=== PATIENT | female | born 1990 ===

== ENCOUNTER → 2020-08-16 | Outpatient (CLI) | payer OTHER ==
[2020-08-18 08:09] LABS: HPV 16 Negative (Negative); HPV 18 Negative (Negative); HPV OTHER HR TYPES Negative (Negative)
== END | disposition home or self-care (01) ==
LOC: LAB 09:54 → LAB SHORT 09:54
PROVIDERS: Obstetrics & Gynecology
DX: Z01.419 Encounter for gynecological examination (general) (routine) without abnormal findings (principal)
CPT/HCPCS: 87624; G0123

== ENCOUNTER → 2022-06-28 | Outpatient (CLI) | payer OTHER | END | disposition home or self-care (01) | LOC: LAB SHORT 12:00 → LAB 12:00 | DX: O09.93 Supervision of high risk pregnancy, unspecified, third trimester (principal) | CPT/HCPCS: 87081; 87150 ==

== ENCOUNTER 2022-07-27 00:41 | Inpatient (IN) | payer OTHER ==
[~2022-07-27] VITALS: Ht 165.1 cm; Wt 79.5 kg
[2022-07-27 01:34] LABS: BASOPHILS ABSOLUTE AUTO 0.05 K/mm3 (0.00-0.23); BASOPHILS PERCENT AUTO 0 % (0-2); EOSINOPHILS ABSOLUTE AUTO 0.08 K/mm3 (0.00-0.68); EOSINOPHILS PERCENT AUTO 1 % (0-6); Hematocrit 36.7 % (33.0-51.0); IMMATURE GRAN PERCENT AUTO 1 % (0-1); LYMPHOCYTES PERCENT AUTO 18 % (21-46); MONOCYTES ABSOLUTE AUTO 0.93 K/mm3 (0.16-1.47); MONOCYTES PERCENT AUTO 8 % (4-13); Mean Corpuscular HGB 29.1 pg (26.0-34.0); Mean Corpuscular HGB Conc 32.7 g/dL (31.5-36.5); Mean Corpuscular Volume 89 fL (80-100); Mean Platelet Volume 10.3 fL (9.1-12.4); NEUTROPHILS ABSOLUTE AUTO 8.01 K/mm3 (1.96-9.15); NEUTROPHILS PERCENT AUTO 72 % (41-73); Platelet Count 233 K/mm3 (150-400); RDW Coefficient Variation 15.6 % (11.7-14.2); Red Blood Cell Count 4.12 M/mm3 (3.80-5.20); White Blood Cell Count 11.17 K/mm3 (4.00-11.30)
--- NOTE | 2022-07-27 10:13 | NUR ---
Pt. is awake and welcomes my visit. Spouse and Pts.parents are present, as is the baby. Re-establish rapport as this family is known to this electronic scale tester. Lending Activities Supervisor arrives for a well-baby check. Facilitate a short review of the birthing story and pray a blessing over the baby and the family. Pt. and family verbalize gratitude for the spiritual care visit.
[2022-07-27] MEDS ORDERED: IBUP800 PO (11:25)
[2022-07-27 16:44] LABS: Hematocrit 31.6 % (33.0-51.0); Hemoglobin 10.6 g/dL (11.5-16.0); Mean Corpuscular HGB 30.2 pg (26.0-34.0); Mean Corpuscular HGB Conc 33.5 g/dL (31.5-36.5); Mean Corpuscular Volume 90 fL (80-100); Mean Platelet Volume 10.3 fL (9.1-12.4); Platelet Count 217 K/mm3 (150-400); RDW Coefficient Variation 15.8 % (11.7-14.2); RDW Standard Deviation 52.2 fL (35.1-46.3); Red Blood Cell Count 3.51 M/mm3 (3.80-5.20); White Blood Cell Count 11.26 K/mm3 (4.00-11.30)
--- NOTE | 2022-07-27 17:00 | NUR ---
NO COMPLAINTS. DENIES PAIN. CARING FOR SELF AND BABY INDEPENDANTLY. NO QUESTIONS OR CONCERNS.
--- NOTE | 2022-07-27 20:26 | NUR ---
Pt was holding baby while sitting in bed. Pt was awake. All needs were met.
--- NOTE | 2022-07-28 12:47 | NUR ---
DC INSTRUCTIONS GIVEN, DISCHARGED HOME WITH . WILL FOLLOW UP SATURDAY AT 1100 HERE AT [facility] FOR PPFU AND WITH DR MCCULLOUGH WITHIN 4-6 WEEKS.
== END 2022-07-28 12:45 | disposition home or self-care (01) | DRG 806 ==
LOC: OBS 00:41 → BC 00:44 → OBS 01:09 → BC 01:10
PROVIDERS: ADMIT Obstetrics & Gynecology
PROC: 10E0XZZ Delivery of Products of Conception, External Approach (ICD-10-PCS; principal; 2022-07-27)
PROC: 10907ZC Drainage of Amniotic Fluid, Therapeutic from Products of Conception, Via Natural or Artificial Opening (ICD-10-PCS; 2022-07-27)
DX: O48.0 Post-term pregnancy (principal); D62 Acute posthemorrhagic anemia; Z37.0 Single live birth; O26.893 Other specified pregnancy related conditions, third trimester; O99.02 Anemia complicating childbirth; O99.03 Anemia complicating the puerperium; Z3A.40 40 weeks gestation of pregnancy; D50.9 Iron deficiency anemia, unspecified; Z67.41 Type O blood, Rh negative; Z98.890 Other specified postprocedural states
CPT/HCPCS: 85025; 85027; 86850; 86870; 86900; 86901; A9270; J1885; J2210; J2590; J7120

== ENCOUNTER → 2024-10-23 | Outpatient (CLI) | payer OTHER ==
[~2024-10-23] MED LIST: IBUP800 PO
[2024-10-23 12:55] LABS: Source, Urine Clean Catch
[2024-10-23 14:26] LABS: Bacteria Few /hpf; Squamous Epithelial Cells Few /hpf (Few); White Blood Cells, Urine 0-2 /hpf (0-5)
== END ==
LOC: LAB 12:47 → LAB SHORT 12:47
PROVIDERS: Advanced Practice Midwife
DX: O09.90 Supervision of high risk pregnancy, unspecified, unspecified trimester (principal)
CPT/HCPCS: 81015; 87086

== ENCOUNTER → 2025-04-28 | Outpatient (CLI) | payer OTHER | END | disposition home or self-care (01) | LOC: LAB 11:56 → LAB SHORT 11:56 | DX: O09.90 Supervision of high risk pregnancy, unspecified, unspecified trimester (principal) | CPT/HCPCS: 87081; 87150 ==

== ENCOUNTER 2025-06-03 03:25 | Inpatient (IN) | payer OTHER ==
[2025-06-03] VITALS (8 sets, daily range): BP systolic 101–116; BP diastolic 59–77
[~2025-06-03] VITALS: Ht 165.1 cm; Wt 79.1 kg
[2025-06-03] MEDS ORDERED: ePHEDrine Sulfate 50 MG/ML 1ML Injection XX PRN (05:25)
[2025-06-03] MEDS ORDERED: Carboprost Tromethamine 250 MCG/ML 1ML Amp IM PRN ×2 (05:25→09:25)
[2025-06-03] MEDS ORDERED: Methylergonovine Maleate 0.2MG / ML 1ML Amp IM PRN ×2 (05:25→09:30)
[2025-06-03] MEDS ORDERED: Oxytocin 10 Unit / ML Vial IM PRN (05:25)
[2025-06-03] MEDS ORDERED: FentaNYL 2mcg/ml-Bup 0.1% Epd 250 ML EPI PRN (05:25)
[2025-06-03] MEDS ORDERED: Ondansetron HCl 2 MG / ML 2ML Vial IV PRN (05:25)
[2025-06-03] MEDS ORDERED: OXYTOCIN/RINGER'S LACTATE 500 ML IV PRN (05:25)
[2025-06-03] MEDS ORDERED: OXYTOCIN/RINGER'S LACTATE 500 ML IV ONE (05:32)
[2025-06-03] MEDS ORDERED: Tranexamic Acid 100 ML IV SCH (05:40)
[2025-06-03 05:56] LABS: BASOPHILS ABSOLUTE AUTO 0.04 K/mm3 (0.00-0.23); BASOPHILS PERCENT AUTO 1 % (0-2); EOSINOPHILS ABSOLUTE AUTO 0.06 K/mm3 (0.00-0.68); EOSINOPHILS PERCENT AUTO 1 % (0-6); Hematocrit 37.2 % (33.0-51.0); Hemoglobin 12.5 g/dL (11.5-16.0); IMMATURE GRAN ABSOLUTE AUTO 0.06 K/mm3 (0.00-0.10); IMMATURE GRAN PERCENT AUTO 1 % (0-1); LYMPHOCYTES ABSOLUTE AUTO 1.77 K/mm3 (0.84-5.20); LYMPHOCYTES PERCENT AUTO 20 % (21-46); MONOCYTES ABSOLUTE AUTO 0.67 K/mm3 (0.16-1.47); MONOCYTES PERCENT AUTO 8 % (4-13); Mean Corpuscular HGB Conc 33.6 g/dL (31.5-36.5); Mean Corpuscular Volume 95 fL (80-100); NEUTROPHILS ABSOLUTE AUTO 6.18 K/mm3 (1.96-9.15); NEUTROPHILS PERCENT AUTO 70 % (41-73); NRBC ABSOLUTE 0.00 K/mm3 (0.00-0.02); NRBC Auto 0.0 /100 WBC (0.0-0.2); Platelet Count 168 K/mm3 (150-400); RDW Coefficient Variation 14.1 % (11.7-14.2); RDW Standard Deviation 49.2 fL (35.1-46.3)
[2025-06-03] MEDS ORDERED: Witch Hazel/Glycerin PADS TOP PRN (09:25)
[2025-06-03] MEDS ORDERED: OXYTOCIN/RINGER'S LACTATE 500 ML IV SCH (09:25)
[2025-06-03] MEDS ORDERED: Benzocaine Topical Anesthetic Spray 60GM TOP PRN (09:25)
--- NOTE | 2025-06-03 10:40 | NUR ---
"Spiritual Care Visit | Pt. Request Pt. and family are gathered at bedside with their baby girl when they welcome my visit. The family is known to this wood borer from the community. facilitated an update from the Pt. and spouse. Pt. displayed evidence of strength and was ambulating in the room. When it was a appropriate, a blessing was given for both the and the family. Pt. and Spouse verbalize gratitude for the spiritual care visit."
[2025-06-03] MEDS ORDERED: Rho(D) Immune Globulin 300 MCG / SYR IV ONE (11:20)
[2025-06-03] MEDS ORDERED: Rho(D) Immune Globulin 300 MCG / SYR IV SCH (18:05)
[2025-06-04 00:10] VITALS: BP 108/71
[2025-06-04] MEDS ORDERED: FentaNYL Citrate 50 MCG/ML 2 ML Injection IV PRN (07:25)
[2025-06-04 08:41] VITALS: BP 110/66
[2025-06-04] MEDS ORDERED: Prenatal Vit/FE Fumarate/FA 1 Tab PO SCH (09:00)
[2025-06-04] MEDS ORDERED: PRENATAL TABLE1 EAC2 PO (11:22)
[2025-06-04 11:44] VITALS: BP 106/68
== END 2025-06-04 12:34 | disposition home or self-care (01) | DRG 807 ==
LOC: OBS 03:25 → BC 03:30 → OBS 05:03 → BC 05:04
PROVIDERS: ADMIT Obstetrics & Gynecology
PROC: 10E0XZZ Delivery of Products of Conception, External Approach (ICD-10-PCS; principal; 2025-06-03)
PROC: 4A1HXCZ Monitoring of Products of Conception, Cardiac Rate, External Approach (ICD-10-PCS; 2025-06-03)
PROC: 3E0334Z Introduction of Serum, Toxoid and Vaccine into Peripheral Vein, Percutaneous Approach (ICD-10-PCS; 2025-06-03)
DX: O48.0 Post-term pregnancy (principal); Z37.0 Single live birth; O69.89X0 Labor and delivery complicated by other cord complications, not applicable or unspecified; Z3A.41 41 weeks gestation of pregnancy; O26.893 Other specified pregnancy related conditions, third trimester; Z67.41 Type O blood, Rh negative; O99.814 Abnormal glucose complicating childbirth; O69.81X0 Labor and delivery complicated by cord around neck, without compression, not applicable or unspecified; Z23 Encounter for immunization
CPT/HCPCS: 36415; 59025; 81003; 85025; 85460; 86850; 86870; 86900; 86901; 99214; A9270; J2590; J2791; J7120